=== PATIENT | female | born 1995 | race Caucasian/White ===

== ENCOUNTER → 2025-04-08 | Outpatient (CLI) | payer OTHER ==
--- NOTE | 2025-04-08 14:23 | CT ---
EXAMINATION TYPE: CT facial bones wo con CT DLP: 814 mGycm, Automated exposure control for dose reduction was used. DATE OF EXAM: 04/08/2025 1:34 PM COMPARISON: None. 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 Coronal, axial and sagittal reformatted images were also provided in soft tissue and bone windows and submitted for interpretation. FINDINGS: There is no evidence of fracture, subluxation, dislocation, or significant soft tissue swelling. Post surgical changes with screws involving the mandible with increased sclerosis. No surrounding lucency. The orbital contents are unremarkable. The temporal-mandibular joints appear symmetric. Mild mucosal thickening of the left sphenoid sinus. The remaining paranasal sinuses are clear. The mastoid air ce lls are clear. IMPRESSION: 1. No acute facial bone fracture. 2. Postsurgical changes of the mandible. [facility], , 04/08/2025 2:21 PM
== END | disposition home or self-care (01) ==
LOC: RADCTMAIN 13:11
PROVIDERS: ATTEND Family Medicine
DX: Q75.9 Congenital malformation of skull and face bones, unspecified (principal)
CPT/HCPCS: 70486